=== PATIENT | male | born 1980 | race American Indian/Alaskan Native ===

== ENCOUNTER 2017-09-30 10:52 | Emergency (ER) | payer SELFPAY ==
--- NOTE | 2017-09-30 13:14 | Emergency Department Report ---
Blank Doc - Documentation Documentation: Patient is a 37-year-old [place] male who is presenting with cough, congestion for the past 2 days. Patient states he is getting some mild chest discomfort with cough. Cough is productive. Patient will have a chest x-ray performed to rule out atypical pneumonia and will follow with the [facility]
--- NOTE | 2017-09-30 13:17 | Emergency Department Report ---
HPI - General Chief Complaint: Upper Respiratory Infection Time Seen by Provider: 09/30/17 12:54 - HPI HPI: Patient is a 37-year-old male who is presenting with cough, congestion for the past 2 days. Patient states he is getting some mild chest discomfort with cough. Cough is productive.Patient reports cough, sinus congestion body aches 2 days. Denies any medical problem. No medication at home. He has no access to a primary care and he does not have insurance according to patient. He denies any shortness of breath. Denies any chest pain or discomfort. Denies any sore throat. Denies any fever or chills. Generalized aching 4-10 and took cough and cold medication. ED Past Medical Hx - Past Medical History Previous Medical History?: No - Surgical History Past Surgical History?: No - Family History Family history: no significant - Social History Smoking Status: Never Smoker Substance Use Type: None - Medications Home Medications: Home Medications Medication Instructions Recorded Confirmed Last Taken Type Cetirizine HCl [ZyrTEC] 10 mg PO QAM 143 Days #14 capsule 09/30/17 Unknown Rx Fluticasone [Flonase] 1 spray NS QDAY 14 Days #1 bottle 09/30/17 Unknown Rx guaiFENesin/DM 100/10MG 10 ml PO Q12H PRN #100 ml 09/30/17 Unknown Rx [Robitussin Dm] methylPREDNISolone [Medrol] 4 mg PO QAM 6 Days #1 tab.ds.pk 09/30/17 Unknown Rx ED Review of Systems ROS: Stated complaint: COUGH, SINUS, JOINT ACHES Other details as noted in HPI Comment: All other systems reviewed and negative Constitutional: no symptoms reported Eyes: denies: eye pain, eye discharge, vision change ENT: congestion. denies: ear pain, throat pain Respiratory: cough. denies: orthopnea, shortness of breath, SOB with exertion, SOB at rest, stridor, wheezing Cardiovascular: denies: chest pain, palpitations, dyspnea on exertion, edema, syncope, paroxysmal nocturnal dyspnea Gastrointestinal: denies: abdominal pain, nausea, vomiting, diarrhea, constipation, hematemesis, melena, hematochezia Genitourinary: denies: urgency, dysuria, frequency, hematuria, discharge Musculoskeletal: myalgia. denies: back pain, joint swelling, arthralgia Skin: denies: rash Neurological: denies: headache, weakness, numbness, paresthesias, confusion, abnormal gait, vertigo Physical Exam - Physical Exam Vital Signs: Vital Signs 09/30/17 11:59 Temperature 99 F Pulse Rate 93 H Respiratory 18 Rate Blood Pressure 124/89 O2 Sat by Pulse 98 Oximetry General: This is a 37-year-old male well-nourished well-developed and nontoxic in appearance Physical Exam: Head: Normocephalic, atraumatic, no abrasion, no bruising and no contusion. Eyes: Biateral pupils equal and reactive to light, bilateral EOM intact.. Bilateral conjunctival and sclera without injection, normal accommodation. No nystagmus Mouth: Moist, no pharyngeal exudate or erythema. No peritonsillar abscesses. Uvula is midline and oral airways patent. Ears: TM congested without erythema. Bilateral EAC without any redness swelling or drainage. No mastoid bone tenderness Nose: Bilateral nasal turbinates congested with erythema and clear drainage. Maxillary and frontal sinuses non-tender to palpate. Neck: Supple, No Cervical adenopathy, full range of motion and no C-spine tenderness. No swelling or tracheal deviation normal reflexes Cardiovascular: S1, S2. Regular rate and rhythm. No murmur. Capillary refill is less then 3 seconds. Lungs: Clear to auscultate bilaterally. Patient with congested cough. No rhonchi, wheezes or rales. No chest wall tenderness. No chest contusion. No bruising to chest. Abdomen: Non-tender to palpate in all quadrants, no guarding or rebound tenderness, positive bowel sounds in all quadrants. No CVA tenderness. No hernia, bruit or mass. No rigidity or distention. Extremities: No clubbing, cyanosis or edema. +2 pulses. No neurovascular compromise Skin: Clean, dry and intact. No rash or lesions.. Psych: Normal mood and behavior ED Course Vital Signs 09/30/17 11:59 Temperature 99 F Pulse Rate 93 H Respiratory 18 Rate Blood Pressure 124/89 O2 Sat by Pulse 98 Oximetry - Reevaluation(s) Reevaluation #1: 09/30/17 17:02 Patient received Deltasone 60 mg by mouth and Tylenol No. 3 2 tablets in the emergency room. ED Medical Decision Making - Radiology Data Radiology results: report reviewed Chest x-ray reveals bilateral pulmonary presumed granulomas, few tiny nodular densities noted in the mid to lower lungs, right more than left is also some inhaler/periareolar, presumed granulomas and/or blood vessels. Otherwise unremarkable lungs. Intact bones. No other x-ray to compare. - Medical Decision Making ED course: Patient reports that she's been having and cough, sinus and body aches for the past 2 days. 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 She reports that he's never been diagnosed of any lung issues. I discussed with him his x-ray report and I told him he'll need to follow up with primary care to call tomorrow and schedule an appointment with [facility] for management and also to monitor. I also discussed them they probably will refer him to a solution analyst which is along for follow-up chest x-ray or CT scan. I discussed with him that I will refer him to [facility] and also to on-call solution analyst who referred to discharge instruction paperwork for both numbers. Patient voiced understanding of discharge injection and treatment plan and he was given Deltasone 60 mg by mouth in the emergency room and also Tylenol 3 2 tablets by mouth for bodyaches. Patient discharged home in stable condition with prescription for Medrol Dosepak, Zyrtec, Flonase, Robitussin DM and Proventil inhaler Critical care attestation.: If time is entered above; I have spent that time in minutes in the direct care of this critically ill patient, excluding procedure time. ED Disposition Clinical Impression: Upper respiratory infection with cough and congestion, Musculoskeletal pain, Abnormal finding on chest xray Disposition: DC-01 TO HOME OR SELFCARE Is pt being admited?: No Does the pt Need Aspirin: No Condition: Stable Instructions: Upper Respiratory Infection (ED), Acute Cough (ED), Musculoskeletal Pain (ED) Additional Instructions: Please follow-up with his [facility] as instructed for management of primary care problems. He will also need to have a repeat chest x-ray in one week. Your chest x-ray was abnormal today. Please follow up with solution analyst who is a lung specialist. Take medication as prescribed Increase her fluid intake Prescriptions: Cetirizine HCl [ZyrTEC] 10 mg PO QAM 143 Days #14 capsule Fluticasone [Flonase] 1 spray NS QDAY 14 Days #1 bottle guaiFENesin/DM 100/10MG [Robitussin Dm] 10 ml PO Q12H PRN #100 ml PRN Reason: Cough methylPREDNISolone [Medrol] 4 mg PO QAM 6 Days #1 tab.ds.pk Referrals: [facility] [Outside] - 10/02/17 JIM RENTERIA MD [Staff Physician] - 10/02/17 Forms: Work/School Release Form(ED)
--- NOTE | 2017-09-30 15:52 | XRay Report ---
CHEST 2 VIEWS INDICATION: Cough. COMPARISON: None similar at this institution. FINDINGS: PA and lateral chest radiographs demonstrate normal cardiomediastinal silhouette. Few tiny nodular densities noted in mid to lower lungs, right more than left as also some hilar/perihilar, presumed granulomas and/or blood vessels. Otherwise unremarkable lungs. Intact bones. CONCLUSION: Bilateral pulmonary presumed granulomas, as described. Please also correlate clinically and with prior chest imaging, if available. Thank you for the opportunity to participate in this patient's care.
[2017-09-30] MEDS ORDERED: DELTASONE PO ONE (16:27)
[2017-09-30] MEDS ORDERED: TYLENOL #3 PO ONE (16:28)
[2017-09-30 17:42] VITALS: BP 128/76
== END 2017-09-30 17:44 | disposition home or self-care (01) ==
LOC: ED 10:52
DX: J06.9 Acute upper respiratory infection, unspecified (principal)
CPT/HCPCS: 71046; 99283; J7512